=== PATIENT | male | born 1935 | race Caucasian/White ===

== ENCOUNTER 2018-02-15 15:56 | Inpatient (IN) | payer MEDICARE, BC ==
--- NOTE | 2018-02-15 16:43 | ED ---
Lower Extremity - HPI Summary HPI Summary: The pt is an 82 y/o male presenting to [facility] c/o bilateral LE weakness since 1 week ago. He notes multiple falls, difficulty ambulating, back pain, nausea, and dizziness. He notes a Mhx of DM but denies any hx of neurological problems. - History of Current Complaint Chief Complaint: EDWeakness Stated Complaint: WEAKNESS IN LEGS Time Seen by Provider: 02/15/18 16:12 Hx Obtained From: Patient Onset of Pain: Days - 1 week Onset/Duration: Still Present Severity Currently: None Pain Intensity: 0 Pain Scale Used: 0-10 Numeric Timing: Constant Associated Signs And Symptoms: Positive: Weakness, Dizziness Aggravating Factor(s): Ambulation - Allergies/Home Medications Allergies/Adverse Reactions: Allergies Allergy/AdvReac Type Severity Reaction Status Date / Time No Known Allergies Allergy Verified 02/15/18 16:12 PMH/Surg Hx/FS Hx/Imm Hx Previously Healthy: No Endocrine/Hematology History: Reports: Hx Diabetes - TYPE 2 Cardiovascular History: Reports: Hx Coronary Artery Disease, Hx Hypercholesterolemia - HLD Respiratory History: Reports: Hx Asthma - USES INHALERS, Hx Seasonal Allergies, Hx Sleep Apnea - USES CPAP GI History: Reports: Hx Gastroesophageal Reflux Disease - BARETES SYNDROME 1989 , Other GI Disorders - BARRETTS ESOPHOGUS History: Reports: Other Problems/Disorders - BLADDER CANCER, TURP, LEFT URETRAL STENT Denies: Hx Kidney Infection, Hx Kidney Stones Sensory History: Reports: Hx Cataracts, Hx Contacts or Glasses - READING, Hx Vision Problem, Hx Hearing Aid - BILAT, Hx Hearing Problem Denies: Hx Glaucoma Opthamlomology History: Reports: Hx Cataracts, Hx Contacts or Glasses - READING , Hx Vision Problem Denies: Hx Glaucoma - Cancer History Cancer Type, Location and Year: Bladder CA 07/24 Hx Chemotherapy: No - Surgical History Surgery Procedure, Year, and Place: 1993 OR 1994 SEPTOPLASTY, [facility] [place]. 1982 (?) PILONIDIAL CYSTECTOMY, [facility] [place]. TURP & LEFT URETRAL STENT 2011 [facility] [place] Hx Anesthesia Reactions: No - Immunization History Date of Tetanus Vaccine: PT UNSURE Date of Influenza Vaccine: NONE Infectious Disease History: No Infectious Disease History: Denies: Traveled Outside the [place] in Last 30 Days - Family History Known Family History: Positive: Unknown - Social History Occupation: Retired Lives: With Family Alcohol Use: Weekly Alcohol Amount: 2 GLASSES WINE per WEEK Substance Use Type: Reports: None Smoking Status (MU): Former Smoker Review of Systems Constitutional: Other - Positive: Dizziness Positive: Nausea Musculoskeletal: Other - Positive: Back pain, Difficulty ambulating, multiple falls Positive: Weakness - Bilateral LE extremities All Other Systems Reviewed And Are Negative: Yes Physical Exam - Summary Physical Exam Summary: Appearance: Well-appearing, Well-nourished, lying in bed comfortably Skin: Warm, dry, no obvious rash Eyes: sclera anicteric, no conjunctival pallor ENT: mucous membranes moist, pharynx appears normal Neck: Supple, nontender Respiratory: Clear to auscultation, no signs of respiratory distress Cardiovascular: Normal S1, S2. No murmurs. Normal distal pulses in tibial and radial bilaterally. Abdomen: Soft, nontender, normal active bowel sounds present Musculoskeletal: Mild bilateral pittign edema, Strength/ROM Intact Neurological: A&Ox3, awake and alert, mentation is normal, speech is fluent and appropriate Psychiatric: affect is normal, does not appear anxious or depressed GCS: 15 Triage Information Reviewed: Yes Vital Signs On Initial Exam: Initial Vitals Temp Pulse Resp BP Pulse Ox 97.6 F 98 22 167/114 96 02/15/18 16:05 02/15/18 16:05 02/15/18 16:05 02/15/18 16:05 02/15/18 16:05 Vital Signs Reviewed: Yes Diagnostics - Vital Signs Vital Signs Temp Pulse Resp BP Pulse Ox 02/15/18 16:06 98 25 167/114 97 02/15/18 16:05 97.6 F 98 17 167/114 96 - Laboratory Result Diagrams: 02/18/18 06:35 02/18/18 06:35 Lab Statement: Any lab studies that have been ordered have been reviewed, and results considered in the medical decision making process. - CT Brain CT CT Interpretation Completed By: Radiologist - IMPRESSION: LARGE BILATERAL SUBDURAL HEMATOMAS DESCRIBED. The ED physician reviewed this radiology report. - EKG 16:36 Cardiac Rate: NL - 93 bpm Summary of EKG Findings: RBBB Lower Extremity Course/Dx - Course Course Of Treatment: An 82 year-old M presents to the ED with a CC of bilateral LE weakness since 1 week ago. He notes falls, difficulty ambulating, back pain, nausea, and dizziness. A physical exam revealed mild bilateral pitting edema. A brain CT reveals a large subdural hematoma. An EKG reveals RBBB. In the ED course, pt was given N.s .9% 3000ml IV, Morphine 10 mg IV and Ondansetron 8 mg IV which improved the symptoms. I discussed the care of the pt with Dr. Wong - Neurosurgeon who agreed to admit the pt. Dr Brewer, the hospitalist agreed to admit the pt. Patient will be admitted with a final Dx of subdural hematoma. Pt is agreeable with this plan. Allergies noted. - Diagnoses Provider Diagnoses: Subdural hematoma - Physician Notifications Discussed Care Of Patient With: Adalberto Wong - Neurosurgeon Time Discussed With Above Provider: 17:21 Instructed by Provider To: Admit As Inpatient - Dr. Wong recommended admiting the pt to the ICU for a surgery tomorrow. 17:37- Dr. Brewer- Hospitalist agreed to admit the pt. - Critical Care Time Critical Care Time: 30-74 min - 82-year-old man with acute on chronic subdural hematoma, requiring frequent neurologic reevaluation and neurosurgical consultation and admission. Discharge - Sign-Out/Discharge Documenting (check all that apply): Patient Departure - Admit - Discharge Plan Condition: Stable Disposition: ADMITTED TO [facility] - Billing Disposition and Condition Condition: STABLE Disposition: Admitted to [facility] - Attestation Statements Document Initiated by Marcel: Yes Documenting Scribe: Sarah Melgoza Provider For Whom Marcel is Documenting (Include Credential): Dr. En Renteria MD Scribe Attestation: I, Sarah Melgoza , scribed for Dr. En Renteria MD on 02/26/18 at 2335. Scribe Documentation Reviewed: Yes Provider Attestation: The documentation as recorded by the Sarah rojas accurately reflects the service I personally performed and the decisions made by me, Dr. En Renteria MD
[2018-02-15 16:57] LABS: ABS Basophils 0 10^3/ul (0-0.2); ABS Eosinophils 0.1 10^3/ul (0-0.6); ABS Lymphocytes 1.2 10^3/ul (1.0-4.8); ABS Monocytes 0.3 10^3/ul (0-0.8); ABS Neutrophils 3.2 10^3/ul (1.5-7.7); ABS Nucleated RBC 0 10^3/ul; Eosinophil % 2.5 % (0-6); Hematocrit 37 % (42-52); Hemoglobin 12.5 g/dl (14.0-18.0); Lymphocyte % 24.5 % (25-47); Mean Corpuscular HGB Conc 34 g/dl (31-36); Mean Corpuscular Hemoglobin 29 pg (27-31); Mean Corpuscular Volume 85 fL (80-94); Mean Platelet Volume 7.6 fL (7.4-10.4); Nucleated Red Blood Cells % 0.3; Platelet Count 173 10^3/ul (150-450); Red Blood Count 4.33 10^6/ul (4.00-5.40); Red Cell Distribution Width 13 % (10.5-15); White Blood Count 4.9 10^3/ul (3.5-10.8)
[2018-02-15 17:33] LABS: EGFR Non-African American 58.4 (>60)
[2018-02-15] MEDS ORDERED: Dextrose 50% Syringe 50 ML* 25 GM/50 ML SYRINGE IV PUSH PRN (18:14)
[2018-02-15] MEDS ORDERED: Ondansetron INJ* 2 MG/ML VIAL IV PRN (18:14)
[2018-02-15] MEDS ORDERED: hydrALAZINE IV* 20 MG/ML VIAL IV SLOW PU PRN (18:14)
[2018-02-15] MEDS ORDERED: Acetaminophen TAB* 325 MG PO PRN (18:14)
[2018-02-15] MEDS ORDERED: Magnesium Sulfate 2 GM IV* 2 GM/50 ML BAG IVPB ONE (18:28)
[2018-02-15] MEDS: Atorvastatin* 10 MG TAB PO SCH (20:16)
[2018-02-15 20:20] LABS: INR 0.9 (0.77-1.02)
[2018-02-15] MEDS: niCARdipine 0.1MG/ML IVPREMIX* 20 MG/200 ML BAG IV SCH (20:30)
--- NOTE | 2018-02-15 22:01 | HP ---
CC: Dr. Niño. HISTORY AND PHYSICAL: ADDENDUM: Please note, I did touch base with Dr. Niño, the running specialist, as I am admitting the patient to the ICU. We were discussing blood pressure management in the patient. He would like to try to keep this patient' s blood pressure between 130 and 140. He actually recommended nicardipine drip. The last reading I just got was 170/110, so I will start a nicardipine drip at 2.5 and try to get that blood pressure down just a little bit to try to reduce the amount of bleeding. Again, I did touch base with Dr. Niño and he was recommending this and was in agreement as well. PORFIRIO LO NP [id number]/CPS #: [id number] MTDD
--- NOTE | 2018-02-15 22:26 | HP ---
AMENDED REPORT NOW INCLUDES COSIGNER DESIGNATION ADDENDUM NOW INCLUDED ON THIS REPORT CC: Dr. Genao; Dr. Wong; Dr. Niño * HISTORY AND PHYSICAL: DATE OF ADMISSION: 02/15/18 PRIMARY CARE PROVIDER: Dr. Genao. CONSULTING NEUROSURGEON: Dr. Wong. MY ATTENDING PHYSICIAN WHILE IN HOSPITAL: Femi Dale MD * (report dictated by Reji Graham NP). CHIEF COMPLAINT: Weakness. HISTORY OF PRESENT ILLNESS: Mr. Corral is an 82-year-old male patient. He carries a history of diabetes, bladder cancer, GERD. He is hard of hearing. He has history of Park's esophagus, hyperlipidemia. He also carries a history of KHADAR and BPH. He comes into our ER today stating that about 10 days ago he sustained a fall off his porch. He was trying to take care of his recycling and he fell off the porch about 3 feet and hit his head. The witnessed the fall. She noticed that he did his head. She tried to get him to seek medical care, but he did not want to. He was initially a little confused afterwards, but after that had resolved the confusion, he was better. He did not pass out, did not have a loss of consciousness. There was no chest pain prior to or after. He says he simply fell trying to care of his recycling. He denies any neck pain. He said he did not pass out before. He had no lightheadedness or dizziness with the exception days afterwards he has been having intermittent dizziness. He has been feeling weak he says in the legs. He has had trouble with walking. The noted that his gait has become more of a shuffle now. Today, he was trying to get out of the chair and he could not , he says he just did not have the strength in his lower extremities, called the and when he tried to get up he did end up falling again. He did not hit his head this time, but she was concerned because, to her it seems like he was just getting worse ever since that big fall 10 days ago, so she called the ambulance and he came into the ED. There have been no reports of fever, no reports of chest pain. He says typically when he is feeling well he walks 2 to 3 miles a day and he does not get chest pain with this. He does admit to little bit of a headache. He does admit to some dizziness particularly with position change, but there has been no focal weakness is reported and no reports of confusion. In the ED, he was noted to have bilateral subdural hematomas, which did appear to be older and we were asked to evaluate for admission. PAST MEDICAL HISTORY: Significant for: 1. Diabetes, which is [id number]-nhnwcehxo. 2. History of bladder cancer. 3. GERD. 4. Park's esophagus. 5. Hard of hearing. 6. Hyperlipidemia. 7. KHADAR. 8. BPH. PAST SURGICAL HISTORY: He has had multiple cystoscopies. He has had bladder tumor resection and he has had septoplasty. MEDICATIONS: Home meds according to the list that he provided includes: 1. Multivitamin 1 tablet daily. 2. Anne 60 mg p.o. twice a day. 3. Flomax 0.4 mg daily. 4. Fluticasone spray 1 spray both nares b.i.d. 5. Proscar 5 mg daily. 6. Ferrous sulfate 325 mg p.o. daily. 7. Vitamin D 1000 units p.o. daily. 8. Aspirin 81 mg daily. 9. Vitamin C 1000 mg p.o. daily. 10. Glyburide 5 mg daily. 11. Omeprazole 20 mg daily. 12. Mevacor 20 mg p.o. at bedtime. ALLERGIES TO MEDICATIONS: Include no known drug allergies. FAMILY HISTORY: His mother had an [place] at the age of 98; father had an abdominal aortic aneurysm at the age of 93 and he was then. SOCIAL HISTORY: He is a former smoker. He quit over 20 years ago. He does drink a glass of wine on Sundays. Surrogate decision maker is his , Josephine. REVIEW OF SYSTEMS: There is no documented fever. He denied having any significant weight change. There was no double vision. There is no ear discharge. He denies having any rhinorrhea. There is no sore throat. No thyroid enlargement. Denies having any chest pain. There is no orthopnea. He denies having any nocturnal dyspnea. There was no abdominal pain. There was no nausea, no vomiting. No dysuria. There is no frequency. No seizure, no loss of consciousness. No pruritus and no skin ulcerations. Review of 14 systems was completed, all others negative. PHYSICAL EXAMINATION GENERAL: At this time, Mr. Corral is an 82-year-old male patient. He is sitting in the ED stretcher. He does not appear to be in any acute distress. He appears to be well nourished and well developed. VITAL SIGNS: Blood pressure 154/90, pulse 96, respirations 20, O2 sat 97%, temperature 97.6. HEENT: Head: Atraumatic and normocephalic. Eyes: EOMs are intact. Sclerae anicteric and not pale. Throat: Oral mucosa appears to be moist. No oropharyngeal erythema. NECK: Supple. LUNGS: Clear to auscultation bilaterally. There were no wheezes, rales, or rhonchi. HEART: Sounds S1, S2. He had a regular rate and rhythm. There were no murmurs , rubs, or gallops. ABDOMEN: Soft. It was flat, nontender. Bowel sounds were present. EXTREMITIES: Pulses were 2+ throughout. He is moving all 4 extremities with 5/ 5 strength. NEUROLOGIC: The patient is awake. He is alert. He is oriented x3. His finger -to- nose and jlpv-[id number]-jibp intact bilaterally. He had no drift. His visual hou were intact. He had no gross focal deficits. His speech was clear. Tongue was midline. No facial drooping. SKIN: Intact. DIAGNOSTIC STUDIES/LAB DATA: WBC 4.9, RBC of 4.33, hemoglobin 12.5, hematocrit of 37, platelet count of 173. He did have a sodium of 137, potassium of 4.3, chloride of 107, bicarb 24, BUN of 21, creatinine of 1.19, glucose of 200, lactic 1.6, calcium of 9.3, mag was 1.7. Total bili 0.4, AST 21 , ALT 20, alk phos 107. Troponin 0. Albumin was 3.8. He had a brain CT obtained today, which impression showed large bilateral subdural hematomas as described. He had an EKG obtained today as well. It does show a normal sinus rhythm with a rate of 93 with a right bundle branch block. He had no ST elevations or T- wave inversions. When you review it to the previous EKG, it actually looks improved. The previous EKG was more tachycardic. This EKG does appear to be at his baseline and stable. Old medical records were reviewed. ASSESSMENT AND PLAN: Mr. Corral is an 82-year-old male patient coming into the hospital today with complaints of weakness and falls, on evaluation was found to have bilateral subdural hematomas. He will be admitted inpatient observation status for: 1. Bilateral subdural hematomas. I did touch base with Dr. Wong. He will be evaluating the patient tomorrow morning. The plan will be to put him in the ICU with frequent neuro checks every hour. If there are any changes, we will alert Dr. Wong immediately of these and get a CT of the brain. At this point , his blood pressure was noted to be 170/110. I will treat this. I would like to try to get him less than that, keep him less than 170 minimally and diastolic less than 110, so I have ordered p.r.n. hydralazine. He will be placed in the ICU for close monitoring and the plan will be n.p.o. after midnight for bilateral tonya holes tomorrow with Dr. Wong. In terms of his RCRI, he is low risk. He is pending a chest x-ray. He is medically optimized for the proposed procedure. The patient does walk 2 to 3 miles a day and is not having any active cardiac symptoms. 2. Diabetes. I will put him on a lispro sliding scale with fingersticks every 6 hours given the fact that he is n.p.o. 3. History of gastroesophageal reflux disease. Continue PPI therapy. 4. History of bladder cancer. Follow up with his PCP. 5. Hyperlipidemia. We will continue his current meds as prescribed. 6. History of obstructive sleep apnea. I have ordered his CPAP. 7. Benign prostatic hypertrophy. Continue meds as prescribed. 8. DVT prophylaxis: Because of the subdural hematomas, he will be placed on SCDs. 9. Code status: Full code. 10. Fluids, electrolytes, and nutrition: He is to be n.p.o. for proposed procedure in the morning. TIME SPENT: Time spent on the admission was 60 minutes, greater than half the time spent [id number] with the patient obtaining my history and physical, other half the time spent going over the plan of care with the patient and implementing the plan of care. I did discuss the plan of care with my attending, Dr. Dale; he is in agreement. REJI GRAHAM NP ADDENDUM: Please note, I did touch base with Dr. Niño, the receivables specialist, as I am admitting the patient to the ICU. We were discussing blood pressure management in the patient. He would like to try to keep this patient's blood pressure between 130 and 140. He actually recommended nicardipine drip. The last reading I just got was 170/110, so I will start a nicardipine drip at 2.5 and try to get that blood pressure down just a little bit to try to reduce the amount of bleeding. Again, I did touch base with Dr. Niño and he was recommending this and was in agreement as well. REJI GRAHAM NP [id number]/CPS #: [id number]/CPS #: [id number] GILES
[2018-02-15] MEDS: Insulin LISPRO* 1 UNITS UNIT SUBCUT SCH (23:20)
[2018-02-15 23:25] LABS: Urine Appearance Clear; Urine Blood Negative (Negative); Urine Color Straw; Urine Ketones Negative (Negative); Urine Protein Negative (Negative); Urine Specific Gravity 1.008 (1.010-1.030); Urine Urobilinogen Negative (Negative)
[2018-02-16] MEDS: niCARdipine 0.1MG/ML IVPREMIX* 20 MG/200 ML BAG IV SCH ×2 (00:54→00:56)
[2018-02-16] MEDS: Insulin LISPRO* 1 UNITS UNIT SUBCUT SCH ×3 (06:02→18:06)
[2018-02-16 06:26] LABS: ABS Basophils 0 10^3/ul (0-0.2); ABS Eosinophils 0.1 10^3/ul (0-0.6); ABS Lymphocytes 1.1 10^3/ul (1.0-4.8); ABS Monocytes 0.3 10^3/ul (0-0.8); ABS Neutrophils 3.6 10^3/ul (1.5-7.7); ABS Nucleated RBC 0 10^3/ul; Eosinophil % 2.1 % (0-6); Hematocrit 40 % (42-52); Hemoglobin 13.8 g/dl (14.0-18.0); Lymphocyte % 21.2 % (25-47); Mean Corpuscular HGB Conc 34 g/dl (31-36); Mean Corpuscular Hemoglobin 29 pg (27-31); Mean Corpuscular Volume 85 fL (80-94); Mean Platelet Volume 7.7 fL (7.4-10.4); Nucleated Red Blood Cells % 0; Platelet Count 162 10^3/ul (150-450); Red Blood Count 4.75 10^6/ul (4.00-5.40); Red Cell Distribution Width 13 % (10.5-15); White Blood Count 5.1 10^3/ul (3.5-10.8)
[2018-02-16 06:29] LABS: INR 0.9 (0.77-1.02)
[2018-02-16 06:42] LABS: EGFR Non-African American 66.7 (>60)
[2018-02-16] MEDS: Ferrous Sulfate TAB* 325 MG PO SCH (07:53)
[2018-02-16] MEDS: Finasteride TAB* 5 MG PO SCH (07:53)
[2018-02-16] MEDS: Tamsulosin CAP* 0.4 MG PO SCH (07:53)
[2018-02-16] MEDS ORDERED: Pneumococcal *Vac Polyvalent 0.5 ML VIAL IM ONE (09:00)
--- NOTE | 2018-02-16 09:50 | PN ---
Progress Note - Progress Note Date of Service: 02/16/18 SOAP: Subjective: []Patient with history of severeal recent falls. Presented to ER with general malaise. CT done showing large bilateral subacute SDH. Admitted to ICU where he has remained stable Objective: []Mild LUE drift Neuro otherwise intact Assessment: []Bilateral Subacute SDH Plan: []A proposed procedure of bilateral tonya hole drainage of subacute SDH was explained to the patient and his . The risks of surgery including bleeding, infection,seizures and the potential need for craniotomy were all discussed. PLAN- Bilateral Tonya Hole Drainage of Subdural Hematomas
[2018-02-16] MEDS: Omeprazole CAP* 20 MG PO SCH (09:59)
[2018-02-16] MEDS: levETIRAcetam TAB* 500 MG PO SCH ×2 (09:59→20:43)
--- NOTE | 2018-02-16 12:17 | CONSULT ---
Consult Consult: Consultation Note -- Critical Care Requesting Physician: Dr Jose Brewer Reason for consult: SDH Limitations in history/physical: none Date of consult: 02/16/2018 HPI: 82y M w/pmhx NIDDM, Bladder Ca, GERD, h/o barrets esophagus, HLD, KHADAR on CPAP, BPH; presented to ER via EMS 02/15 for 4-5 days of increasing gait disturbance, falls. As per and patient, he suffered a fall 10 days back going through recycling bin, she witnessed the fall and head injury on grass/ dirt. no syncope, mild dizziness temporarilty, mild headache temporarily. no weakness/numbness/blurry vision. After 4 days he started shuffling gait, had falls, weakness and unable to be steady. no cp/sob. no weakness/numbness. no loss on urine/bowel function or retention. no slurred speech as per . She brought him to ER, CT brain demonstrated bilateral subdural hematomas without shift/hernation. on baby asa 81mg 3x/week, no other anticoagulants. Neurosurgery has seen patient, plan for OR for craniotomy today. ROS: negative except for pertinent positives mentioned above. PMHx: NIDDM, Bladder Ca, GERD, h/o barrets esophagus, HLD, KHADAR on CPAP, BPH PSHx: cystscopies, bladder tumour resection Family History: mother-ND; father - AAA Social History: Alcohol-social 1/week, Smoking-former, qiet 20yrs back, Drug use -none; Job; family Allergies: Allergies Allergy/AdvReac Type Severity Reaction Status Date / Time No Known Allergies Allergy Verified 02/15/18 16:12 Home Medications: Ascorbic Acid TAB* [Vitamin C TAB*] 1,000 mg PO DAILY 08/09/12 [History Confirmed 02/15/18] Ferrous Sulfate TAB* 325 mg PO DAILY 08/09/12 [History Confirmed 02/15/18] Fexofenadine (NF) [Anne (NF)] 60 mg PO BID 08/09/12 [History Confirmed ] Fluticasone NASAL SPRAY 50MCG* [Fluticasone NASAL SPRAY*] 1 spray BOTH NARES BID 08/09/12 [History Confirmed 02/15/18] Lovastatin(NF) [Mevacor(NF)] 20 mg PO BEDTIME 08/09/12 [History Confirmed ] Omeprazole CAP* [Prilosec CAP*] 20 mg PO QAM 08/09/12 [History Confirmed ] Tamsulosin CAP* [Flomax CAP*] 0.4 mg PO DAILY 08/09/12 [History Confirmed ] glyBURIDE TAB* [Diabeta TAB*] 5 mg PO DAILY 08/09/12 [History Confirmed 02/15/18 ] Finasteride [Proscar] 5 mg PO DAILY 08/31/15 [History Confirmed 02/15/18] Aspirin [Aspirin Adult Low Dose 81 MG] 81 mg PO DAILY 08/04/16 [History Confirmed 02/15/18] Cholecalciferol (Vitamin D3) [Vitamin D] 1,000 unit PO DAILY 08/04/16 [History Confirmed 02/15/18] Multivit-Min/FA/Lycopen/Lutein [Centrum Silver Men Tablet] 1 tab PO DAILY [History Confirmed 02/15/18] Tele: NSR Vitals: Vital Signs Temp 97.2 F 02/16/18 07:28 Pulse 87 02/16/18 11:00 Resp 15 02/16/18 11:17 BP 144/83 02/16/18 10:49 Pulse Ox 95 02/16/18 11:00 Intake & Output 02/15/18 02/16/18 02/16/18 18:59 06:59 18:59 Intake Total 338 30 Output Total 1450 525 Balance -1112 -495 Weight 92.533 kg 91.6 kg Intake: IVPB 160 ns 160 Medicated IV 178 CC - Nicarpidine/Cardene 108 ns + mag 70 Oral 30 Output: Urine 1450 525 Other: Date of Last Bowel t 02/16 Movement # Bowel Movements 1 1 Estimated Stool Amount Medium Medium O2/Vent: RA Infusions: heplock Current Medications: Acetaminophen (Tylenol Tab*) 650 mg PO Q4H PRN PRN Reason: FEVER/PAIN Atorvastatin Calcium (Lipitor*) 5 mg PO BEDTIME [facility] Last Admin: 02/15/18 20:16 Dose: 5 mg Dextrose (D50w Syringe 50 Ml*) 12.5 gm IV PUSH .FOR FS < 60 - SS PRN PRN Reason: FS < 60 Ferrous Sulfate (Ferrous Sulfate Tab*) 325 mg PO DAILY [facility] Last Admin: 02/16/18 07:53 Dose: 325 mg Finasteride (Proscar Tab*) 5 mg PO DAILY [facility] Last Admin: 02/16/18 07:53 Dose: 5 mg Nicardipine/Sodium Chloride (Cardene 0.1mg/Ml Ivpremix*) 20 mg in 200 mls @ 25 mls/hr IV .(as Initial Rate) [facility]; Protocol Last Admin: 02/16/18 00:56 Dose: 50 mls/hr Insulin Human Lispro (Humalog*) 0 units SUBCUT Q6HR [facility]; Protocol Last Admin: 02/16/18 06:02 Dose: 2 unit Levetiracetam (Keppra Tab*) 500 mg PO BID [facility] Last Admin: 02/16/18 09:59 Dose: 500 mg Omeprazole (Prilosec Cap*) 20 mg PO QAM@0730 [facility] Last Admin: 02/16/18 09:59 Dose: 20 mg Ondansetron HCl (Zofran Inj*) 4 mg IV Q6H PRN PRN Reason: NAUSEA Tamsulosin HCl (Flomax Cap*) 0.4 mg PO DAILY [facility] Last Admin: 02/16/18 07:53 Dose: 0.4 mg Physical Exam: General: awake, alert, no distress, no diaphoresis Head: normocephalic, atraumatic HEENT: no pallor, no icterus, moist mucous membranes Neck: soft, supple, no jvd, no stridor CVS: normal rate, regular, no murmur Resp: bilateral air entry, no rhales, no wheeze, no rhonchi, no acc muscle use Abdomen: soft, nontender, nondistended, bowel sounds present Ext: pulses+, warm, no edema Skin: intact Neuro: awake, alert, orientedx3, moving all extremities, no gross focal deficit Labs: Laboratory Results - last 24 hr 02/15/18 02/15/18 02/15/18 16:50 16:50 16:50 WBC 4.9 RBC 4.33 Hgb 12.5 L Hct 37 L MCV 85 MCH 29 MCHC 34 RDW 13 Plt Count 173 MPV 7.6 Neut % (Auto) 65.9 Lymph % (Auto) 24.[address] [place] % (Auto) 6.5 Eos % (Auto) 2.5 Baso % (Auto) 0.6 Absolute Neuts (auto) 3.2 Absolute Lymphs (auto) 1.2 Absolute Monos (auto) 0.3 Absolute Eos (auto) 0.1 Absolute Basos (auto) 0 Absolute Nucleated RBC 0 Nucleated RBC % 0.3 INR (Anticoag Therapy) Sodium 137 Potassium 4.3 Chloride 107 Carbon Dioxide 24 Anion Gap 6 BUN 21 Creatinine 1.19 H Est GFR ( Amer) 70.6 Est GFR (Non-Af Amer) 58.4 BUN/Creatinine Ratio 17.6 Glucose 200 H POC Glucose (mg/dL) Lactic Acid 1.6 Calcium 9.3 Magnesium 1.7 L Total Bilirubin 0.40 AST 21 ALT 20 Alkaline Phosphatase 107 H Troponin I 0.00 Total Protein 6.0 L Albumin 3.8 Globulin 2.2 Albumin/Globulin Ratio 1.7 TSH 4.53 Urine Color Urine Appearance Urine pH Ur Specific Watts Urine Protein Urine Ketones Urine Blood Urine Nitrate Urine Bilirubin Urine Urobilinogen Ur Leukocyte Esterase Urine Glucose Urine Ascorbic Acid 02/15/18 02/15/18 02/15/18 19:59 22:50 23:17 WBC RBC Hgb Hct MCV MCH MCHC RDW Plt Count MPV Neut % (Auto) Lymph % (Auto) [place] % (Auto) Eos % (Auto) Baso % (Auto) Absolute Neuts (auto) Absolute Lymphs (auto) Absolute Monos (auto) Absolute Eos (auto) Absolute Basos (auto) Absolute Nucleated RBC Nucleated RBC % INR (Anticoag Therapy) 0.90 Sodium Potassium Chloride Carbon Dioxide Anion Gap BUN Creatinine Est GFR ( Amer) Est GFR (Non-Af Amer) BUN/Creatinine Ratio Glucose POC Glucose (mg/dL) 198 H Lactic Acid Calcium Magnesium Total Bilirubin AST ALT Alkaline Phosphatase Troponin I Total Protein Albumin Globulin Albumin/Globulin Ratio TSH Urine Color Straw Urine Appearance Clear Urine pH 5.0 Ur Specific [place] 1.008 L Urine Protein Negative Urine Ketones Negative Urine Blood Negative Urine Nitrate Negative Urine Bilirubin Negative Urine Urobilinogen Negative Ur Leukocyte Esterase Negative Urine Glucose Negative Urine Ascorbic Acid * A 02/16/18 02/16/18 02/16/18 05:44 05:44 05:44 WBC 5.1 RBC 4.75 Hgb 13.8 L Hct 40 L MCV 85 MCH 29 MCHC 34 RDW 13 Plt Count 162 MPV 7.7 Neut % (Auto) 70.3 Lymph % (Auto) 21.[address] % (Auto) 6.0 Eos % (Auto) 2.1 Baso % (Auto) 0.4 Absolute Neuts (auto) 3.6 Absolute Lymphs (auto) 1.1 Absolute Monos (auto) 0.3 Absolute Eos (auto) 0.1 Absolute Basos (auto) 0 Absolute Nucleated RBC 0 Nucleated RBC % 0 INR (Anticoag Therapy) 0.90 Sodium 137 Potassium 4.0 Chloride 106 Carbon Dioxide 25 Anion Gap 6 BUN 17 Creatinine 1.06 Est GFR ( Amer) 80.7 Est GFR (Non-Af Amer) 66.7 BUN/Creatinine Ratio 16.0 Glucose 177 H POC Glucose (mg/dL) Lactic Acid Calcium 9.4 Magnesium 1.9 Total Bilirubin AST ALT Alkaline Phosphatase Troponin I Total Protein Albumin Globulin Albumin/Globulin Ratio TSH Urine Color Urine Appearance Urine pH Ur Specific [place] Urine Protein Urine Ketones Urine Blood Urine Nitrate Urine Bilirubin Urine Urobilinogen Ur Leukocyte Esterase Urine Glucose Urine Ascorbic Acid 02/16/18 05:49 WBC RBC Hgb Hct MCV MCH MCHC RDW Plt Count MPV Neut % (Auto) Lymph % (Auto) [place] % (Auto) Eos % (Auto) Baso % (Auto) Absolute Neuts (auto) Absolute Lymphs (auto) Absolute Monos (auto) Absolute Eos (auto) Absolute Basos (auto) Absolute Nucleated RBC Nucleated RBC % INR (Anticoag Therapy) Sodium Potassium Chloride Carbon Dioxide Anion Gap BUN Creatinine Est GFR ( Amer) Est GFR (Non-Af Amer) BUN/Creatinine Ratio Glucose POC Glucose (mg/dL) 175 H Lactic Acid Calcium Magnesium Total Bilirubin AST ALT Alkaline Phosphatase Troponin I Total Protein Albumin Globulin Albumin/Globulin Ratio TSH Urine Color Urine Appearance Urine pH Ur Specific [place] Urine Protein Urine Ketones Urine Blood Urine Nitrate Urine Bilirubin Urine Urobilinogen Ur Leukocyte Esterase Urine Glucose Urine Ascorbic Acid Imaging: Ct brain 02/15 - bilateral subdural hematomas+, no shift (report reviewed) Assessment: 82y M w/pmhx NIDDM, Bladder Ca, GERD, h/o barrets esophagus, HLD, KHADAR on CPAP, BPH; presented to ER via EMS 02/15 for 4-5 days of increasing gait disturbance, falls. As per and patient, he suffered a fall 10 days back going through recycling bin, she witnessed the fall and head injury on grass/ dirt. no syncope, mild dizziness temporarilty, mild headache temporarily. no weakness/numbness/blurry vision. After 4 days he started shuffling gait, had falls, weakness and unable to be steady. no cp/sob. no weakness/numbness. no loss on urine/bowel function or retention. no slurred speech as per . She brought him to ER, CT brain demonstrated bilateral subdural hematomas without shift/hernation. on baby asa 81mg 3x/week, no other anticoagulants. -Bilateral Subdural hematomas 2/2 to fall DM KHADAR on cpap BPH Plan: Neuro- noted CT findings; awake/alert. no AC/antiplatelets. BP better, was on transient cardene overnight. plan for OR today for bilateral craniotomy/ evacuation. delirium prec. CVS- BP controlled; PRN cardene. hold antiplatelets/anticoag. cont statin. Resp- RA, no distress ID- wbc normal, afebrile. no abx indicated. GI- NPO for OR. Renal- Cr okay. cont finasterid for BPH. no jurado. Heme- hg stable. plt stable. no antiplatelets/AC. Endo- fingerstick q6h. insulin slidinig scale post op. check hba1c Musculsk- pressure ulcer prophylaxis. Bedrest. Wounds- none Nutrition- NPO DVT prophylaxis: SCDs GI prophylaxis: - Central Line: - Arterial Line: - Jurado Cathetor: - Disposition: ICU Code Status: full code Total Critical Care time is 35 minutes, excluding procedures/teaching Donovan Niño MD Audiovisual Aids Technician (Electronically Signed)
[2018-02-16] MEDS ORDERED: fentaNYL* 50 MCG/ML 2 ML VIAL (100 MCG VIAL) ONE (13:23)
[2018-02-16] MEDS ORDERED: Lidocaine 1% MPF wEPI 200,000* 30 ML SDV ONE (13:30)
[2018-02-16] MEDS ORDERED: Thrombin 5,000 UNITS* 1 APPLIC KIT - topical use - TOPICAL ONE ×2 (13:30→13:50)
[2018-02-16] MEDS ORDERED: ceFAZolin 1 GM VIAL(*) ONE (14:23)
[2018-02-16] MEDS ORDERED: Naloxone* 0.4 MG/ML 1 ML VIAL IV PRN (14:26)
[2018-02-16] MEDS ORDERED: Levalbuterol 0.63MG/3ML NEB* UNIT OF USE INH PRN (14:31)
[2018-02-16] MEDS ORDERED: fentaNYL* 50 MCG/ML 2 ML VIAL (100 MCG VIAL) IV PRN (14:31)
[2018-02-16] MEDS ORDERED: Ondansetron INJ* 2 MG/ML VIAL IV PRN (14:31)
[2018-02-16] MEDS ORDERED: Lidocaine 2% PF * 5 ML VIAL ONE (15:17)
[2018-02-16] MEDS ORDERED: Labetalol IV* 5 MG/ML 20 ML VIAL ONE (15:17)
[2018-02-16] MEDS ORDERED: Dexamethasone IV* 4 MG/ML 1 ML (4 MG) ONE (15:23)
[2018-02-16] MEDS ORDERED: Famotidine IV* 10 MG/ML 2 ML (20 mg) ONE (15:23)
[2018-02-16] MEDS ORDERED: Mivacurium Chloride* 20 MG/10 ML VIAL IV ONE (15:23)
[2018-02-16] MEDS ORDERED: EPHEDrine (Pressors)* 50 MG/ML VIAL ONE (15:23)
[2018-02-16] MEDS ORDERED: Propofol* 10 MG/ML 20 ML BTL IV PUSH ONE (15:23)
[2018-02-16] MEDS ORDERED: HYDROcodone/ACETAMIN 5-325 MG* 1 TAB PO PRN (15:27)
[2018-02-16] MEDS: Atorvastatin* 10 MG TAB PO SCH (20:43)
[2018-02-17] MEDS: Insulin LISPRO* 1 UNITS UNIT SUBCUT SCH ×5 (00:18→21:58)
[2018-02-17] MEDS: Omeprazole CAP* 20 MG PO SCH (05:42)
[2018-02-17 05:50] LABS: Hematocrit 39 % (42-52); Hemoglobin 13.4 g/dl (14.0-18.0); Mean Corpuscular HGB Conc 34 g/dl (31-36); Mean Corpuscular Hemoglobin 29 pg (27-31); Mean Corpuscular Volume 84 fL (80-94); Mean Platelet Volume 7.6 fL (7.4-10.4); Platelet Count 190 10^3/ul (150-450); Red Blood Count 4.66 10^6/ul (4.00-5.40); Red Cell Distribution Width 13 % (10.5-15); White Blood Count 7.7 10^3/ul (3.5-10.8)
[2018-02-17 05:57] LABS: INR 0.98 (0.77-1.02)
--- NOTE | 2018-02-17 08:08 | PN ---
Progress Note - Progress Note Date of Service: 02/17/18 SOAP: Subjective: [S/p bilateral tonya holes for subacute SDH evacuation, RTx1, LTx2, POD #1. Patient reports feeling better today. Minimal pain, has not required pain medication. Patient did well getting up to chair this morning. ] Objective: [ Vital Signs: Temp Pulse Resp BP Pulse Ox 98.8 F 98 19 135/81 98 02/17/18 04:00 02/17/18 07:01 02/17/18 07:01 02/17/18 06:01 02/17/18 07:01 General: Alert and NAD. Neuro: Motor and sensory intact. PERRL, no pronator drift. Speech is clear. Incisions: Intact with raghav. No swelling, erythema. Drains removed today. ] Assessment: [Stable post-op. Follow up CT brain shows pneumocephalus and improvement in SDH bilaterally. Drains discontinued this morning] Plan: [1. Transfer to short stay today 2. Up out of bed with assistance 3. PT evaluation 4. Advance diet 5. Continue neuro checks]
[2018-02-17] MEDS ORDERED: Famotidine IV * 20 MG in NS 0.9% 100 ML* 100 ML IVPB SCH (09:00)
[2018-02-17] MEDS: Tamsulosin CAP* 0.4 MG PO SCH (09:34)
[2018-02-17] MEDS: levETIRAcetam TAB* 500 MG PO SCH ×2 (09:34→21:59)
[2018-02-17] MEDS: Ferrous Sulfate TAB* 325 MG PO SCH (09:34)
[2018-02-17] MEDS: Finasteride TAB* 5 MG PO SCH (09:34)
[2018-02-17] MEDS: Famotidine IV* 10 MG/ML 2 ML (20 mg) IV SCH (09:34)
--- NOTE | 2018-02-17 09:57 | PN ---
Progress Note - Progress Note Date of Service: 02/17/18 Note: Progress Note -- Critical Care 24 hour events: -s/p craniotomy with evacuation 02/16; no events overnight; stable mild output from bilateral JEFFREY drains -awake/alert, no confusion, moving all ext, mild pain+ -drains discontinued this morning by neurosurgery Tele: NSR Vitals: Vital Signs Temp 97.7 F 02/17/18 08:00 Pulse 106 02/17/18 09:01 Resp 22 02/17/18 09:01 BP 141/78 02/17/18 09:00 Pulse Ox 96 02/17/18 09:01 Intake & Output 02/16/18 02/17/18 02/17/18 18:59 06:59 18:59 Intake Total 830 1118 Output Total 585 1153 400 Balance 245 -35 -400 Weight 89.3 kg Intake: IV Fluids 800 400 LR 800 400 IVPB 718 LR 718 Oral 30 Output: Cranial Drain 55 60 Urine 525 1050 400 Other 5 43 Other: Date of Last Bowel 02/16 Movement # Bowel Movements 1 Estimated Stool Amount Medium Small Other Amount Description LEFT CRANIAL DRAIN O2/Vent: RA Infusions: heplock Current Medications: Acetaminophen (Tylenol Tab*) 650 mg PO Q4H PRN PRN Reason: FEVER/PAIN Hydrocodone Bitart/Acetaminophen ([place] 5-325 Tab*) 2 tab PO Q4H PRN PRN Reason: PAIN Atorvastatin Calcium (Lipitor*) 5 mg PO BEDTIME [facility] Last Admin: 02/16/18 20:43 Dose: 5 mg Dextrose (D50w Syringe 50 Ml*) 12.5 gm IV PUSH .FOR FS < 60 - SS PRN PRN Reason: FS < 60 Famotidine (Pepcid Iv*) 20 mg IV DAILY [facility] Last Admin: 02/17/18 09:34 Dose: 20 mg Ferrous Sulfate (Ferrous Sulfate Tab*) 325 mg PO DAILY [facility] Last Admin: 02/17/18 09:34 Dose: 325 mg Finasteride (Proscar Tab*) 5 mg PO DAILY [facility] Last Admin: 02/17/18 09:34 Dose: 5 mg Nicardipine/Sodium Chloride (Cardene 0.1mg/Ml Ivpremix*) 20 mg in 200 mls @ 25 mls/hr IV .(as Initial Rate) [facility]; Protocol Last Admin: 02/16/18 00:56 Dose: 50 mls/hr Lactated Ringer's (Lactated Ringers 1000 Ml Bag*) 1,000 mls @ 75 mls/hr IV PER RATE [facility] Last Admin: 02/17/18 05:26 Dose: 75 mls/hr Insulin Human Lispro (Humalog*) 0 units SUBCUT Q6HR [facility]; Protocol Last Admin: 02/17/18 05:41 Dose: 6 unit Levetiracetam (Keppra Tab*) 500 mg PO BID [facility] Last Admin: 02/17/18 09:34 Dose: 500 mg Omeprazole (Prilosec Cap*) 20 mg PO QAM@0730 [facility] Last Admin: 02/17/18 05:42 Dose: 20 mg Ondansetron HCl (Zofran Inj*) 4 mg IV Q6H PRN PRN Reason: NAUSEA Tamsulosin HCl (Flomax Cap*) 0.4 mg PO DAILY [facility] Last Admin: 02/17/18 09:34 Dose: 0.4 mg Physical Exam: General: awake, alert, no distress, no diaphoresis Head: bilateral craniotomy, drains removed now; sites intact HEENT: no pallor, no icterus, moist mucous membranes Neck: soft, supple, no jvd, no stridor CVS: normal rate, regular, no murmur Resp: bilateral air entry, no rhales, no wheeze, no rhonchi, no acc muscle use Abdomen: soft, nontender, nondistended, bowel sounds present Ext: pulses+, warm, no edema Skin: intact Neuro: awake, alert, orientedx3, moving all extremities, no gross focal deficit Labs: Laboratory Results - last 24 hr 02/16/18 02/16/18 02/17/18 12:45 17:54 00:14 WBC RBC Hgb Hct MCV MCH MCHC RDW Plt Count MPV INR (Anticoag Therapy) Sodium Potassium Chloride Carbon Dioxide Anion Gap BUN Creatinine Est GFR ( Amer) Est GFR (Non-Af Amer) BUN/Creatinine Ratio Glucose POC Glucose (mg/dL) 130 H 220 H 273 H Hemoglobin A1c Calcium Magnesium 02/17/18 02/17/18 02/17/18 05:35 05:35 05:35 WBC 7.7 RBC 4.66 Hgb 13.4 L Hct 39 L MCV 84 MCH 29 MCHC 34 RDW 13 Plt Count 190 MPV 7.6 INR (Anticoag Therapy) Sodium 137 Potassium 4.2 Chloride 105 Carbon Dioxide 21 L Anion Gap 11 BUN 20 Creatinine 1.13 Est GFR ( Amer) 75.0 Est GFR (Non-Af Amer) 62.0 BUN/Creatinine Ratio 17.7 Glucose 208 H POC Glucose (mg/dL) Hemoglobin A1c 7.9 H Calcium 9.1 Magnesium 1.7 L 02/17/18 02/17/18 05:35 05:37 WBC RBC Hgb Hct MCV MCH MCHC RDW Plt Count MPV INR (Anticoag Therapy) 0.98 Sodium Potassium Chloride Carbon Dioxide Anion Gap BUN Creatinine Est GFR ( Amer) Est GFR (Non-Af Amer) BUN/Creatinine Ratio Glucose POC Glucose (mg/dL) 206 H Hemoglobin A1c Calcium Magnesium Imaging: Ct brain 02/15 - bilateral subdural hematomas+, no shift (report reviewed) ct brain 02/17 - s/p craniotomy, mild residual left sided clot; drains+, air from post op Assessment: 82y M w/pmhx NIDDM, Bladder Ca, GERD, h/o barrets esophagus, HLD, KHADAR on CPAP, BPH; presented to ER via EMS 02/15 for 4-5 days of increasing gait disturbance, falls. As per and patient, he suffered a fall 10 days back going through recycling bin, she witnessed the fall and head injury on grass/ dirt. no syncope, mild dizziness temporarilty, mild headache temporarily. no weakness/numbness/blurry vision. After 4 days he started shuffling gait, had falls, weakness and unable to be steady. no cp/sob. no weakness/numbness. no loss on urine/bowel function or retention. no slurred speech as per . She brought him to ER, CT brain demonstrated bilateral subdural hematomas without shift/hernation. on baby asa 81mg 3x/week, no other anticoagulants. -Bilateral Subdural hematomas 2/2 to fall DM KHADAR on cpap BPH Plan: Neuro- noted CT findings 02/17; improved post craniotomy, mild residual blood only; awake/alert. no AC/antiplatelets. BP better. Drains removed by neurosurgery today. delirium prec. CVS- BP controlled. hold antiplatelets/anticoag. cont statin. Resp- RA, no distress ID- wbc normal, afebrile. no abx indicated. GI- carb consistent diet Renal- Cr okay. cont finasterid/tamsulosin for BPH. no jurado. Heme- hg stable. plt stable. no antiplatelets/AC. no bleeding from JPs Endo- fingerstick achs, insulin sq sliding scale. restart glyburide 5mg po daily. Musculsk- pressure ulcer prophylaxis. oob to chair. pt/ot Wounds- none Nutrition- carb consistent diet DVT prophylaxis: SCDs GI prophylaxis: - Central Line: - Arterial Line: - Jurado Cathetor: - Disposition: stable neuro, resp, hemodyn status; for transfer to same day surgery floor, signed out to medicine team. Code Status: full code Donovan Niño MD First Assistant (Electronically Signed)
[2018-02-17] MEDS ORDERED: cefTRIAXone(*) 1 GM in NS 0.9% 50 ML* 50 ML IVPB SCH (10:00)
[2018-02-17] MEDS: glyBURIDE TAB* 5 MG PO SCH (12:18)
[2018-02-17] MEDS: Atorvastatin* 10 MG TAB PO SCH (21:59)
[2018-02-18 07:01] LABS: INR 0.91 (0.77-1.02)
[2018-02-18 07:03] LABS: Hematocrit 34 % (42-52); Hemoglobin 11.8 g/dl (14.0-18.0); Mean Corpuscular HGB Conc 34 g/dl (31-36); Mean Corpuscular Hemoglobin 29 pg (27-31); Mean Corpuscular Volume 84 fL (80-94); Mean Platelet Volume 7.6 fL (7.4-10.4); Platelet Count 170 10^3/ul (150-450); Red Blood Count 4.09 10^6/ul (4.00-5.40); Red Cell Distribution Width 13 % (10.5-15); White Blood Count 8.5 10^3/ul (3.5-10.8)
[2018-02-18 07:17] LABS: EGFR Non-African American 53.2 (>60)
--- NOTE | 2018-02-18 08:43 | PN ---
Progress Note - Progress Note Date of Service: 02/18/18 SOAP: Subjective: [S/p bilateral tonya holes for subacute SDH evacuation, POD #2. Patient states that he is feeling well this morning. Ambulating well independently. Denies headache, nausea. Eating and drinking without difficulty. ] Objective: [Vital Signs: Temp Pulse Resp BP Pulse Ox 97.9 F 87 17 126/75 96 02/18/18 07:17 02/18/18 07:17 02/18/18 07:17 02/18/18 07:17 02/18/18 07:17 General: Alert and sitting up in chair this morning. Neuro: Motor and sensory intact. PERRL, EOMI. No pronator drift. Ambulating well. Incision: Intact with raghav, No swelling or erythema. Speech is clear. ] Assessment: [Satisfactory post-op.] Plan: [1. Possible discharge home today if cleared by medicine. 2. Will continue Louise, script sent. 3. Follow up with Dr. Wong in 1 week.]
[2018-02-18] MEDS: levETIRAcetam TAB* 500 MG PO SCH (09:05)
[2018-02-18] MEDS: Insulin LISPRO* 1 UNITS UNIT SUBCUT SCH ×2 (09:05→13:01)
[2018-02-18] MEDS: Ferrous Sulfate TAB* 325 MG PO SCH (09:05)
[2018-02-18] MEDS: Tamsulosin CAP* 0.4 MG PO SCH (09:05)
[2018-02-18] MEDS: glyBURIDE TAB* 5 MG PO SCH (09:05)
[2018-02-18] MEDS: Finasteride TAB* 5 MG PO SCH (09:05)
[2018-02-18] MEDS: Famotidine IV* 10 MG/ML 2 ML (20 mg) IV SCH (09:05)
[2018-02-18] MEDS: Omeprazole CAP* 20 MG PO SCH (09:13)
[2018-02-18] MEDS ORDERED: Magnesium Oxide TAB* 400 MG PO STA (11:58)
[2018-02-18 14:16] VITALS: BP 136/66
--- NOTE | 2018-02-19 06:09 | DS ---
CC: Dr. Jose Brewer; Dr. Donovan Niño; Dr. En Renteria; Dr. Wong; Dr. Noah Genao. * DISCHARGE SUMMARY: DATE OF ADMISSION: DATE OF DISCHARGE: 02/18/18 DISCHARGE DIAGNOSES: 1. Bilateral subdural hematoma status post fall; status post tonya hole for subacute subdural evacuation post-operative day #2. 2. Diabetes mellitus, improved control. 3. History of GERD. 4. History of bladder CA. 5. Hypomagnesemia. DISCHARGE MEDICATIONS: 1. Tylenol 650 p.o. q.6 p.r.n. 2. Ferrous sulfate 325 mg p.o. q. daily. 3. Finasteride 5 mg p.o. q. daily. 4. [place] 5/325 two tabs p.o. q.4 p.r.n. 5. Keppra 500 mg p.o. b.i.d. 6. Lovastatin 20 mg p.o. q.h.s. 7. Omeprazole 20 mg p.o. q.a.m. 8. Flomax 0.4 mg p.o. q. daily. 9. Ascorbic acid 1000 mg p.o. q. daily. 10. Cholecalciferol 1000 units p.o. q. daily. 11. Fluticasone nasal spray one spray both nares b.i.d. 12. Glyburide 5 mg p.o. q. daily. 13. Multivitamins one tab p.o. q. daily. HISTORY OF PRESENT ILLNESS/HOSPITAL COURSE: The patient is an 82-year-old gentleman with a history of diabetes, non-insulin dependent, history of bladder cancer and GERD who about 10 days prior to admission, has sustained a fall in his porch where he mentioned that he was trying to take care of his recycling and he fell off the porch and about 3 feet and hit his head. The fall was witnessed by his and noticed that he did hit his head and felt a little confused afterwards, but after that his confusion has resolved and he was feeling better. There was no loss of consciousness that was reported, however, a few days after the event he began having some dizziness and began to have trouble walking with shuffling gait observed by his . He then presented to the ED on 02/15/18 where he was diagnosed to have a bilateral subdural hematoma for which he underwent a tonya hole evacuation of his subdural hematoma on 02/16/18. He has been ambulating well and has been seen by his physical therapist during the perioperative period as well as postop and who did not recommend any other physical therapy needs at this time. His magnesium levels were also corrected prior to his discharge and was instructed to repeat blood draws in about 2 days and discuss this with his primary care physician. He had been advised do not drive and not to lift anything heavy and to continue his Keppra medication prescribed to him for seizure prophylaxis by neurosurgery department. He was advised to followup with his PCP within three days post discharge and he was advised that if his systems resume or develop new ones or feel any unwell for any reason to call his PCP first and if his PCP cannot entertain him due to scheduling issues alone to call [facility] if his issue is considered nonemergent. He was advised to contact his PCP for represcriptions of any of his controlled pain medications. He had been advised to have his blood redrawn two days post discharge and to discuss the results of his magnesium levels with his PCP to see if he needs more supplementation. He had been advised to call my office regarding any questions or concerns or further clarifications regarding his discharge plans and prescriptions and to take his medications as prescribed. REVIEW OF SYSTEMS: The patient currently denies any recent headaches, dizziness , fevers, chills, nausea, vomiting, chest pain, shortness of breath, increased cough, sputum production, abdominal pain, diarrhea, constipation, pain and/or increased frequency in urination, myalgias or arthralgias, throat pain or new skin lesions. The rest of the 14-point review of systems are otherwise unremarkable. PHYSICAL EXAMINATION: Physical examination shows the most recent vital signs of records with blood pressure of 126/75, 97.9 degrees Fahrenheit, 87 beats per minute heart rate, 17 per minute respiratory rate, saturating at 96%. General Appearance: The patient is awake, alert, and oriented x3, not in acute distress. HEENT: Normocephalic. He does have dressings on his head status post tonya hole evacuation of his subdural hematoma, dressing CDI, PERRLA. Neck is soft and supple with no cervical lymphadenopathy. No JVD. Heart: S1 and S2 within normal limits. Regular rate and rhythm. No murmurs, rubs or gallops. Chest clear to auscultation bilaterally. Good air entry. No wheezes, rales and no rhonchi. Abdomen is soft and nondistended, nontender. Normoactive bowel sounds 4x quadrant. Extremities: No cyanosis, clubbing or edema. Psychiatric: No active psychosis, depression, suicidal or homicidal ideations. Skin is warm to touch. TIME SPENT: The total time spent evaluating the patient, reviewing pertinent data, and appropriate documentation is 50 minutes. [id number]/CPS #: [id number] MTDD
--- NOTE | 2018-03-01 16:28 | OP ---
DATE OF OPERATION: 02/16/18 - ROOM #349 DATE OF : 33 SURGEON: Adalberto Wong MD [employer] MANAGER: NADJA Pitts ANESTHESIA: General. PRE-OP DIAGNOSIS: Bilateral subacute subdural hematomas. POST-OP DIAGNOSIS: Bilateral subacute subdural hematomas. OPERATIVE PROCEDURE: Bilateral bur hole drainage of subacute subdural hematomas. DESCRIPTION OF PROCEDURE: After satisfactory general anesthesia was obtained, the patient was placed on the operating table in the supine position with the head supported with a doughnut headrest. The head was clipped, prepped, and draped in sterile manner for bilateral bur hole drainage with subdurals. The bur holes were outlined in the mid frontal region one on either side and in the mid parietal region, one on either side. The frontal bur holes were localized approximately 6 cm off the midline with the parietal tonya holes outlined 3 cm off the midline. Attention was first directed to the left frontal bur hole where the skin incision was infiltrated with 1% Xylocaine with epinephrine. It was turned in sharply to the periosteum and a single bur hole plate with a power drill. The dura was then opened with the monopolar cautery and a brisk flow of maroon-colored subdural fluid was noted. Subdural space was irrigated, after which the parietal bur hole on this side was performed in a similar manner. Irrigation on this side showed that the frontal and parietal subdural accumulations communicated. A ventricular catheter was then placed through the frontal bur hole and tunneled posteriorly to serve as a postoperative subdural drain. The subdural space was thoroughly irrigated, after which the parietal bur hole was initially closed with 3-0 Vicryl for the subcutaneous tissue and raghav for the skin. The frontal bur hole was then closed in a similar manner. Attention was directed to the right side where a frontal tonya hole was placed. Upon opening the dura on this side, a brisk flow of maroon- colored subdural fluid under pressure was noted. The subdural space was irrigated and a ventricular catheter placed and tunneled posteriorly to serve as a postoperative ventricular drain. After the subdural space had been irrigated, the bur hole was closed with 3-0 Vicryl for the subcutaneous tissues and raghav for the skin. Both drains were hooked to external ventricular drain devices with good flow of subdural fluid noted. The estimated blood loss was less than 50 cc and the final sponge, louann and needle counts correct. The patient was taken to the recovery room, extubated and in stable condition. [id number]/[id number] #: [id number] [facility]ITAL[facility]
== END 2018-02-18 14:00 | disposition home or self-care (01) | DRG 27 ==
LOC: ED 15:56 → ICU 18:02 → SSU 02-17 10:14
PROVIDERS: ADMIT Internal Medicine; ATTEND Student in an Organized Health Care Education/Training Program
PROC: 009430Z Drainage of Intracranial Subdural Space with Drainage Device, Percutaneous Approach (ICD-10-PCS; principal; 2018-02-16 14:00)
DX: S06.5X0A Traumatic subdural hemorrhage without loss of consciousness, initial encounter (principal); E11.9 Type 2 diabetes mellitus without complications; J45.909 Unspecified asthma, uncomplicated; I25.10 Atherosclerotic heart disease of native coronary artery without angina pectoris; K21.9 Gastro-esophageal reflux disease without esophagitis; K22.70 Barrett's esophagus without dysplasia; N40.0 Benign prostatic hyperplasia without lower urinary tract symptoms; E83.42 Hypomagnesemia; I45.10 Unspecified right bundle-branch block; G93.89 Other specified disorders of brain; G47.33 Obstructive sleep apnea (adult) (pediatric); E78.5 Hyperlipidemia, unspecified; W01.0XXA Fall on same level from slipping, tripping and stumbling without subsequent striking against object, initial encounter; Y92.094 Garage of other non-institutional residence as the place of occurrence of the external cause; Z85.51 Personal history of malignant neoplasm of bladder; Y92.009 Unspecified place in unspecified non-institutional (private) residence as the place of occurrence of the external cause; Z87.891 Personal history of nicotine dependence
CPT/HCPCS: 36415; 70450; 71045; 72125; 80048; 80053; 81003; 83036; 83605; 83735; 84443; 84484; 85025; 85027; 85610; 87641; 90732; 93005; 99284; A9270-GY; G8978-GP-CI; G8979-GP-CI; G8980-GP-CI; G8987-GO-CI; G8988-GO-CI; G8989-GO-CI; J0690; J1100; J2001; J2704; J3010; J3475